=== PATIENT | female | born 1970 | race Caucasian/White ===

== ENCOUNTER 2024-04-04 20:08 | Outpatient (REF) | payer OTHER, SELFPAY ==
[2024-04-10 15:08] LABS: Age Gdln ACOG Testing Note (.); HPV Aptima Negative (Negative); IGP, Aptima HPV, rfx 16/18,45 Note (.)
== END 2024-04-04 20:09 | disposition home or self-care (01) ==
LOC: LAB 20:08
PROVIDERS: PCP Nurse Practitioner Family; Visit Provider Obstetrics & Gynecology
DX: Z01.419 Encounter for gynecological examination (general) (routine) without abnormal findings (principal)
CPT/HCPCS: 87624; 88175